=== PATIENT | female | born 1950 | race Caucasian/White ===

== ENCOUNTER 2021-01-18 18:47 | Inpatient (IN) ==
[2021-01-19] MEDS ORDERED: Naloxone 0.4 MG/ML INJ IVP PRN (00:18)
[2021-01-19] MEDS: Azithromycin 500 MG in 0.9 % Sodium Chloride 250 ML IVPB SCH (02:39)
[2021-01-19] MEDS: *HR* OxyCODONE/APAP 10/325 TABLET PO PRN ×2 (02:40→15:42)
[2021-01-19] MEDS ORDERED: Acetaminophen 325 MG TABLET PO PRN (02:52)
[2021-01-19 03:28] LABS: Basophils % 0.2 %; Eosinophils # 0.2 K/mcL (0.0-0.6); Hematocrit 24.8 % (35.3-44.9); Hemoglobin 8.6 g/dL (11.5-15.4); Immature Granulocytes % 1.2 % (0-4); Lymphocytes # 0.5 K/mcL (0.6-4.6); Lymphocytes % 3.1 %; Mean Corpuscular HGB Conc 34.7 g/dL (31.6-35.5); Mean Platelet Volume 8.8 fL (9.4-12.4); Monocytes # 1.2 K/mcL (0.0-1.3); Monocytes % 7.8 %; Neutrophils # 13.6 K/mcL (1.6-8.9); Platelet Count 429 K/mcL (140-400); Red Blood Count 2.61 M/mcL (3.82-4.97); Red Cell Distribution Width 12.3 % (11.5-14.5); Segmented Neutrophils % 86.7 %; White Blood Count 15.7 K/mcL (4.3-11.1)
[2021-01-19 03:38] LABS: INR 1.4; Prothrombin Time 15.4 Seconds (9.4-12.1)
[2021-01-19 03:44] LABS: BUN/Creatinine Ratio 26 (6-26); Blood Urea Nitrogen 11 mg/dL (8-23); Calcium 7.9 mg/dL (8.6-10.3); Carbon Dioxide 30 mEq/L (23-29); Chloride 85 mEq/L (98-107); Glucose 102 mg/dL (70-105); Osmolality,Calculated 252 (280-300); Potassium 3.1 mEq/L (3.5-5.1); Sodium 121 mEq/L (136-145); eGFR For African Americans > 60 (> 60); eGFR For Non-African Americans > 60 (> 60)
[2021-01-19 03:46] LABS: Magnesium 0.9 mg/dL (1.6-2.6)
[2021-01-19 03:59] LABS: Thyroid Stimulating Hormone 4.463 mcIU/mL (0.340-5.600)
[2021-01-19] MEDS ORDERED: Albuterol 2.5 MG/3 ML NEBULIZER IH SCH (04:00)
[2021-01-19] MEDS ORDERED: Lido/Epi/Tetra Gel 2 ML SYRINGE TP ONE (04:59)
[2021-01-19] MEDS ORDERED: 0.9 % Sodium Chloride 1,000 ML IVC SCH (06:45)
[2021-01-19] MEDS: *HR* Enoxaparin 40 MG/0.4 ML SYRINGE SQ SCH (07:55)
[2021-01-19] MEDS: cefTRIAXone 1,000 MG in Water for inj. (sterile) 10 ML IVP SCH (08:14)
[2021-01-19 11:14] LABS: BUN/Creatinine Ratio 21 (6-26); Blood Urea Nitrogen 9 mg/dL (8-23); Calcium 7.8 mg/dL (8.6-10.3); Carbon Dioxide 32 mEq/L (23-29); Chloride 85 mEq/L (98-107); Glucose 98 mg/dL (70-105); Osmolality,Calculated 253 (280-300); Potassium 3.2 mEq/L (3.5-5.1); Sodium 122 mEq/L (136-145); eGFR For African Americans > 60 (> 60); eGFR For Non-African Americans > 60 (> 60)
[2021-01-19] MEDS: Tiotropium 10 INH DOSE IH SCH (11:50)
[2021-01-19 15:19] LABS: BUN/Creatinine Ratio 20 (6-26); Blood Urea Nitrogen 9 mg/dL (8-23); Calcium 7.8 mg/dL (8.6-10.3); Carbon Dioxide 31 mEq/L (23-29); Chloride 86 mEq/L (98-107); Glucose 127 mg/dL (70-105); Osmolality,Calculated 254 (280-300); Potassium 3.3 mEq/L (3.5-5.1); Sodium 122 mEq/L (136-145); eGFR For African Americans > 60 (> 60); eGFR For Non-African Americans > 60 (> 60)
[2021-01-19] MEDS: Gabapentin 400 MG CAPSULE PO SCH ×2 (15:41→21:57)
[2021-01-19] MEDS: Nicotine 21 MG PATCH.TD24 TD SCH (15:42)
[2021-01-19] MEDS: lisinopriL 20 MG TABLET PO SCH (15:42)
[2021-01-19 18:31] LABS: BUN/Creatinine Ratio 21 (6-26); Blood Urea Nitrogen 8 mg/dL (8-23); Calcium 7.9 mg/dL (8.6-10.3); Carbon Dioxide 33 mEq/L (23-29); Chloride 85 mEq/L (98-107); Glucose 96 mg/dL (70-105); Osmolality,Calculated 254 (280-300); Potassium 3.4 mEq/L (3.5-5.1); Sodium 123 mEq/L (136-145); eGFR For African Americans > 60 (> 60); eGFR For Non-African Americans > 60 (> 60)
[2021-01-19] MEDS: traZODone 50 MG TABLET PO SCH (21:58)
[2021-01-19] MEDS: ARIPiprazole 5 MG TABLET PO SCH (21:58)
[2021-01-19] MEDS: Ondansetron 4 MG/2 ML VIAL IVP PRN (22:22)
[2021-01-20 03:36] LABS: Bilirubin,Urine Negative (Negative); Blood,Urine Negative (Negative); Clarity,Urine Clear (Clear); Color,Urine Colorless (Yellow); Glucose,Urine (UA) Normal (Normal); Ketones,Urine Negative (Negative); Leukocyte Esterase,Urine Negative (Negative); Nitrite,Urine Negative (Negative); Protein,Urine Negative (Neg-Trace); Specific Gravity,Urine 1.006 (1.010-1.025); Urobilinogen,Urine Normal (Normal)
[2021-01-20] MEDS: Azithromycin 500 MG in 0.9 % Sodium Chloride 250 ML IVPB SCH (03:54)
[2021-01-20] MEDS: Ondansetron 4 MG/2 ML VIAL IVP PRN (04:46)
[2021-01-20] MEDS: *HR* Enoxaparin 40 MG/0.4 ML SYRINGE SQ SCH (04:53)
[2021-01-20 05:17] LABS: BUN/Creatinine Ratio 16 (6-26); Blood Urea Nitrogen 7 mg/dL (8-23); C-Reactive Protein 236 mg/L (Less than 10); Calcium 7.8 mg/dL (8.6-10.3); Carbon Dioxide 32 mEq/L (23-29); Chloride 87 mEq/L (98-107); Glucose 118 mg/dL (70-105); Lactate Dehydrogenase 100 Units/L (140-271); Magnesium 0.9 mg/dL (1.6-2.6); Osmolality,Calculated 259 (280-300); Potassium 3.8 mEq/L (3.5-5.1); Sodium 125 mEq/L (136-145); eGFR For African Americans > 60 (> 60); eGFR For Non-African Americans > 60 (> 60)
[2021-01-20 05:35] LABS: Ferritin 327 ng/mL (10-120)
[2021-01-20] MEDS: Tiotropium 10 INH DOSE IH SCH (07:37)
[2021-01-20] MEDS: Nicotine 21 MG PATCH.TD24 TD SCH ×2 (08:07→11:47)
[2021-01-20] MEDS: cefTRIAXone 1,000 MG in Water for inj. (sterile) 10 ML IVP SCH (08:08)
[2021-01-20] MEDS: lisinopriL 20 MG TABLET PO SCH (08:09)
[2021-01-20] MEDS: Gabapentin 400 MG CAPSULE PO SCH ×3 (08:10→21:11)
[2021-01-20] MEDS: *HR* OxyCODONE/APAP 10/325 TABLET PO PRN ×2 (11:48→17:49)
[2021-01-20] MEDS: Budesonide/Formoterol 160/4.5 1 PUFF INH IH SCH ×2 (11:57→20:41)
[2021-01-20] MEDS: Cholecalciferol (D-3) 1,000 UNIT (25MCG) TABLET PO SCH (13:00)
[2021-01-20] MEDS: BuPROPion SR (12 HR) 150 MG TABLET PO SCH ×2 (13:00→21:12)
[2021-01-20] MEDS: traZODone 50 MG TABLET PO SCH (21:10)
[2021-01-20] MEDS: modafiniL 100 MG TABLET PO SCH (21:11)
[2021-01-20] MEDS: ARIPiprazole 5 MG TABLET PO SCH (21:12)
[2021-01-21] MEDS: Azithromycin 500 MG in 0.9 % Sodium Chloride 250 ML IVPB SCH (03:04)
[2021-01-21 04:37] LABS: BUN/Creatinine Ratio 26 (6-26); Blood Urea Nitrogen 14 mg/dL (8-23); C-Reactive Protein 124 mg/L (Less than 10); Calcium 7.8 mg/dL (8.6-10.3); Carbon Dioxide 33 mEq/L (23-29); Chloride 89 mEq/L (98-107); Glucose 90 mg/dL (70-105); Lactate Dehydrogenase 77 Units/L (140-271); Osmolality,Calculated 260 (280-300); Potassium 3.9 mEq/L (3.5-5.1); Sodium 125 mEq/L (136-145); eGFR For African Americans > 60 (> 60); eGFR For Non-African Americans > 60 (> 60)
[2021-01-21 04:51] LABS: Ferritin 283 ng/mL (10-120)
[2021-01-21] MEDS: *HR* Enoxaparin 40 MG/0.4 ML SYRINGE SQ SCH (05:15)
[2021-01-21] MEDS: Budesonide/Formoterol 160/4.5 1 PUFF INH IH SCH ×2 (07:32→20:33)
[2021-01-21] MEDS: Tiotropium 10 INH DOSE IH SCH (07:33)
[2021-01-21] MEDS: cefTRIAXone 1,000 MG in Water for inj. (sterile) 10 ML IVP SCH (07:41)
[2021-01-21] MEDS: modafiniL 100 MG TABLET PO SCH ×2 (07:42→22:01)
[2021-01-21] MEDS: Gabapentin 400 MG CAPSULE PO SCH ×3 (07:42→22:00)
[2021-01-21] MEDS: Cholecalciferol (D-3) 1,000 UNIT (25MCG) TABLET PO SCH (07:42)
[2021-01-21] MEDS: BuPROPion SR (12 HR) 150 MG TABLET PO SCH ×2 (07:42→22:00)
[2021-01-21] MEDS: lisinopriL 20 MG TABLET PO SCH (07:42)
[2021-01-21] MEDS: Nicotine 21 MG PATCH.TD24 TD SCH (13:30)
[2021-01-21] MEDS: traZODone 50 MG TABLET PO SCH (22:03)
[2021-01-21] MEDS: ARIPiprazole 5 MG TABLET PO SCH (22:05)
[2021-01-22] MEDS: Azithromycin 500 MG in 0.9 % Sodium Chloride 250 ML IVPB SCH (00:58)
[2021-01-22] MEDS: *HR* Enoxaparin 30 MG/0.3 ML SYRINGE SQ SCH (05:11)
[2021-01-22 06:23] LABS: BUN/Creatinine Ratio 27 (6-26); Blood Urea Nitrogen 13 mg/dL (8-23); Calcium 7.9 mg/dL (8.6-10.3); Carbon Dioxide 34 mEq/L (23-29); Chloride 90 mEq/L (98-107); Glucose 79 mg/dL (70-105); Lactate Dehydrogenase 92 Units/L (140-271); Osmolality,Calculated 265 (280-300); Potassium 3.8 mEq/L (3.5-5.1); Sodium 128 mEq/L (136-145); eGFR For African Americans > 60 (> 60); eGFR For Non-African Americans > 60 (> 60)
[2021-01-22 06:38] LABS: Ferritin 301 ng/mL (10-120)
[2021-01-22] MEDS: Tiotropium 10 INH DOSE IH SCH (07:47)
[2021-01-22] MEDS: Budesonide/Formoterol 160/4.5 1 PUFF INH IH SCH ×2 (07:47→19:38)
[2021-01-22] MEDS: Cholecalciferol (D-3) 1,000 UNIT (25MCG) TABLET PO SCH (07:59)
[2021-01-22] MEDS: lisinopriL 20 MG TABLET PO SCH (07:59)
[2021-01-22] MEDS: cefTRIAXone 1,000 MG in Water for inj. (sterile) 10 ML IVP SCH (08:00)
[2021-01-22] MEDS: Gabapentin 400 MG CAPSULE PO SCH ×3 (08:00→22:09)
[2021-01-22] MEDS: BuPROPion SR (12 HR) 150 MG TABLET PO SCH ×2 (08:00→22:09)
[2021-01-22] MEDS: modafiniL 100 MG TABLET PO SCH ×2 (08:00→22:09)
[2021-01-22 08:49] LABS: C-Reactive Protein 75 mg/L (Less than 10)
[2021-01-22] MEDS: Nicotine 21 MG PATCH.TD24 TD SCH (10:16)
[2021-01-22] MEDS: *HR* OxyCODONE/APAP 10/325 TABLET PO PRN ×2 (10:23→20:37)
[2021-01-22] MEDS ORDERED: Dental Box - Benzocaine 20% SWAB DT ONE (21:20)
[2021-01-22] MEDS ORDERED: Benzocaine 20% 12 APPL GEL..GRAM. TP PRN (21:31)
[2021-01-22] MEDS: traZODone 50 MG TABLET PO SCH (22:08)
[2021-01-22] MEDS: ARIPiprazole 5 MG TABLET PO SCH (22:08)
[2021-01-23] MEDS: *HR* Enoxaparin 30 MG/0.3 ML SYRINGE SQ SCH (04:53)
[2021-01-23] MEDS: *HR* OxyCODONE/APAP 10/325 TABLET PO PRN (04:58)
[2021-01-23 05:02] LABS: Basophils % 0.2 %; Eosinophils # 0.1 K/mcL (0.0-0.6); Eosinophils % 1.1 %; Hematocrit 22.1 % (35.3-44.9); Hemoglobin 7.2 g/dL (11.5-15.4); Immature Granulocytes % 1.4 % (0-4); Lymphocytes # 0.6 K/mcL (0.6-4.6); Mean Corpuscular HGB Conc 32.6 g/dL (31.6-35.5); Mean Corpuscular Volume 98.2 fL (83.0-100.0); Mean Platelet Volume 8.5 fL (9.4-12.4); Monocytes # 0.8 K/mcL (0.0-1.3); Monocytes % 8.6 %; Neutrophils # 7.8 K/mcL (1.6-8.9); Platelet Count 408 K/mcL (140-400); Red Blood Count 2.25 M/mcL (3.82-4.97); Segmented Neutrophils % 82.7 %; White Blood Count 9.5 K/mcL (4.3-11.1)
[2021-01-23 05:39] LABS: BUN/Creatinine Ratio 25 (6-26); Blood Urea Nitrogen 13 mg/dL (8-23); C-Reactive Protein 69 mg/L (Less than 10); Calcium 7.9 mg/dL (8.6-10.3); Carbon Dioxide 33 mEq/L (23-29); Chloride 91 mEq/L (98-107); Glucose 87 mg/dL (70-105); Lactate Dehydrogenase 89 Units/L (140-271); Osmolality,Calculated 265 (280-300); Sodium 128 mEq/L (136-145); eGFR For African Americans > 60 (> 60); eGFR For Non-African Americans > 60 (> 60)
[2021-01-23 05:42] LABS: Ferritin 373 ng/mL (10-120)
[2021-01-23] MEDS: Tiotropium 10 INH DOSE IH SCH (07:31)
[2021-01-23] MEDS: Budesonide/Formoterol 160/4.5 1 PUFF INH IH SCH ×2 (07:31→20:40)
[2021-01-23] MEDS: Cholecalciferol (D-3) 1,000 UNIT (25MCG) TABLET PO SCH (10:24)
[2021-01-23] MEDS: Gabapentin 400 MG CAPSULE PO SCH ×2 (10:24→15:41)
[2021-01-23] MEDS: BuPROPion SR (12 HR) 150 MG TABLET PO SCH (10:24)
[2021-01-23] MEDS: lisinopriL 20 MG TABLET PO SCH (10:25)
[2021-01-23] MEDS: Azithromycin 250 MG TABLET PO SCH (10:25)
[2021-01-23] MEDS: modafiniL 100 MG TABLET PO SCH (10:25)
[2021-01-23] MEDS: cefTRIAXone 1,000 MG in Water for inj. (sterile) 10 ML IVP SCH (10:25)
[2021-01-23] MEDS: Nicotine 21 MG PATCH.TD24 TD SCH (10:30)
[2021-01-24] MEDS: Gabapentin 400 MG CAPSULE PO SCH ×4 (00:56→22:21)
[2021-01-24] MEDS: ARIPiprazole 5 MG TABLET PO SCH ×2 (00:56→22:21)
[2021-01-24] MEDS: traZODone 50 MG TABLET PO SCH ×2 (00:57→22:20)
[2021-01-24] MEDS: BuPROPion SR (12 HR) 150 MG TABLET PO SCH ×3 (00:57→22:21)
[2021-01-24] MEDS: modafiniL 100 MG TABLET PO SCH ×3 (00:57→22:20)
[2021-01-24] MEDS: *HR* Enoxaparin 30 MG/0.3 ML SYRINGE SQ SCH (00:58)
[2021-01-24 03:02] LABS: Hematocrit 23.5 % (35.3-44.9); Mean Corpuscular Hemoglobin 32.9 pg (28.0-33.3); Mean Corpuscular Volume 96.7 fL (83.0-100.0); Mean Platelet Volume 8.7 fL (9.4-12.4); Platelet Count 436 K/mcL (140-400); Red Blood Count 2.43 M/mcL (3.82-4.97); White Blood Count 11.8 K/mcL (4.3-11.1)
[2021-01-24 03:09] LABS: INR 1.7; Prothrombin Time 19.4 Seconds (9.4-12.1)
[2021-01-24 03:19] LABS: BUN/Creatinine Ratio 21 (6-26); Blood Urea Nitrogen 9 mg/dL (8-23); Calcium 8.3 mg/dL (8.6-10.3); Carbon Dioxide 33 mEq/L (23-29); Chloride 89 mEq/L (98-107); Glucose 74 mg/dL (70-105); Magnesium 1.2 mg/dL (1.6-2.6); Osmolality,Calculated 259 (280-300); Potassium 3.5 mEq/L (3.5-5.1); Sodium 126 mEq/L (136-145); eGFR For African Americans > 60 (> 60); eGFR For Non-African Americans > 60 (> 60)
[2021-01-24] MEDS: Tiotropium 10 INH DOSE IH SCH (08:32)
[2021-01-24] MEDS: Budesonide/Formoterol 160/4.5 1 PUFF INH IH SCH ×2 (08:32→19:38)
[2021-01-24] MEDS ORDERED: *HR* Succinylcholine 200 MG/10 ML VIAL IVP ONE (09:37)
[2021-01-24] MEDS ORDERED: Lidocaine -MPF 2% 5 ML VIAL ONE (09:37)
[2021-01-24] MEDS ORDERED: *HR* Propofol 200 MG/20 ML VIAL IVP ONE (10:25)
[2021-01-24] MEDS: lisinopriL 20 MG TABLET PO SCH (11:00)
[2021-01-24] MEDS: Cholecalciferol (D-3) 1,000 UNIT (25MCG) TABLET PO SCH (11:00)
[2021-01-24] MEDS: cefTRIAXone 1,000 MG in Water for inj. (sterile) 10 ML IVP SCH (11:30)
[2021-01-24] MEDS: Azithromycin 250 MG TABLET PO SCH (11:35)
[2021-01-24] MEDS: *HR* OxyCODONE/APAP 10/325 TABLET PO PRN ×2 (13:20→22:21)
[2021-01-24] MEDS: Nicotine 21 MG PATCH.TD24 TD SCH (15:08)
[2021-01-25] MEDS: *HR* OxyCODONE/APAP 10/325 TABLET PO PRN ×2 (04:26→16:23)
[2021-01-25] MEDS: *HR* Enoxaparin 30 MG/0.3 ML SYRINGE SQ SCH (04:27)
[2021-01-25 05:04] LABS: Hematocrit 23.4 % (35.3-44.9); Hemoglobin 7.7 g/dL (11.5-15.4); Mean Corpuscular HGB Conc 32.9 g/dL (31.6-35.5); Mean Corpuscular Hemoglobin 32.1 pg (28.0-33.3); Mean Corpuscular Volume 97.5 fL (83.0-100.0); Mean Platelet Volume 8.7 fL (9.4-12.4); Platelet Count 415 K/mcL (140-400); Red Cell Distribution Width 12.9 % (11.5-14.5); White Blood Count 10.8 K/mcL (4.3-11.1)
[2021-01-25 05:17] LABS: BUN/Creatinine Ratio 17 (6-26); Blood Urea Nitrogen 9 mg/dL (8-23); Calcium 8.4 mg/dL (8.6-10.3); Carbon Dioxide 32 mEq/L (23-29); Chloride 89 mEq/L (98-107); Glucose 83 mg/dL (70-105); Magnesium 1.2 mg/dL (1.6-2.6); Osmolality,Calculated 262 (280-300); Potassium 3.4 mEq/L (3.5-5.1); Sodium 127 mEq/L (136-145); eGFR For African Americans > 60 (> 60); eGFR For Non-African Americans > 60 (> 60)
[2021-01-25] MEDS: Azithromycin 250 MG TABLET PO SCH (07:41)
[2021-01-25] MEDS: BuPROPion SR (12 HR) 150 MG TABLET PO SCH (07:42)
[2021-01-25] MEDS: lisinopriL 20 MG TABLET PO SCH (07:42)
[2021-01-25] MEDS: Cholecalciferol (D-3) 1,000 UNIT (25MCG) TABLET PO SCH (07:42)
[2021-01-25] MEDS: Gabapentin 400 MG CAPSULE PO SCH ×2 (07:42→16:20)
[2021-01-25] MEDS: modafiniL 100 MG TABLET PO SCH (07:42)
[2021-01-25] MEDS: cefTRIAXone 1,000 MG in Water for inj. (sterile) 10 ML IVP SCH (07:43)
[2021-01-25] MEDS: Tiotropium 10 INH DOSE IH SCH (07:57)
[2021-01-25] MEDS: Budesonide/Formoterol 160/4.5 1 PUFF INH IH SCH (07:57)
[2021-01-25] MEDS ORDERED: dexAMETHasone 4 MG TABLET PO SCH (09:00)
[2021-01-25 11:05] VITALS: BP 124/61; PULSE 78; TEMP 98.2
[2021-01-25] MEDS: Nicotine 21 MG PATCH.TD24 TD SCH (12:22)
[2021-01-25 16:34] VITALS: O2SAT 96
== END 2021-01-25 17:20 | DRG 987 ==
LOC: 3NENU → SUATTDRO 01-19 02:52
PROVIDERS: ADMIT Family Medicine; ATTEND Internal Medicine

== ENCOUNTER 2021-02-23 21:42 | Inpatient (IN) ==
[2021-02-24] MEDS ORDERED: Acetaminophen 325 MG TABLET PO PRN (00:03)
[2021-02-24] MEDS ORDERED: Naloxone 0.4 MG/ML INJ IVP PRN (00:03)
[2021-02-24 00:49] LABS: BUN/Creatinine Ratio 17 (6-26); Blood Urea Nitrogen 10 mg/dL (8-23); Calcium 8.8 mg/dL (8.6-10.3); Carbon Dioxide 26 mEq/L (23-29); Chloride 94 mEq/L (98-107); Cholesterol 131 mg/dL (< 200); Glucose 104 mg/dL (70-105); HDL Cholesterol 67 mg/dL (40-59); LDL Cholesterol,Calculated 53 mg/dL (< 100); Magnesium 1.4 mg/dL (1.6-2.6); Osmolality,Calculated 269 (280-300); Phosphorous 2.1 mg/dL (2.7-4.5); Potassium 3.7 mEq/L (3.5-5.1); Sodium 130 mEq/L (136-145); Triglycerides 57 mg/dL (< 150); eGFR For African Americans > 60 (> 60); eGFR For Non-African Americans > 60 (> 60)
[2021-02-24] MEDS ORDERED: *HR* Heparin 5,000 UNIT/ML VIAL IVP PRN (01:12)
[2021-02-24] MEDS ORDERED: *HR* Heparin 5,000 UNIT/ML VIAL IVP ONE (01:12)
[2021-02-24] MEDS ORDERED: Perflutren Lipid Microsphere 1.3 ML in 0.9 % Sodium Chloride 8.7 ML IVP PRN (01:36)
[2021-02-24] MEDS ORDERED: Isovue-370 500 ML BOTTLE IVP ONE (01:43)
[2021-02-24] MEDS ORDERED: Dextrose Gel 15 GM/37.5 ML TUBE PO PRN ×2 (01:44)
[2021-02-24] MEDS ORDERED: D5% in Water 1,000 ML IVC PRN (01:44)
[2021-02-24] MEDS ORDERED: *HR* Dextrose 50 % in Water (Syg) 50 ML SYRINGE IVP PRN (01:44)
[2021-02-24] MEDS ORDERED: Saliva Stimulant 44.3ml BOTTLE PO PRN (01:46)
[2021-02-24 01:55] LABS: Heparin anti-factor XA UFH < 0.04 IU/mL (0.30-0.70)
[2021-02-24 01:56] LABS: INR 1.3; Prothrombin Time 14.3 Seconds (9.4-12.1)
[2021-02-24] MEDS: Heparin 25,000UNIT/250ML 1/2NS 25,000 UNIT/250 ML IV.SOLN IVC SCH (03:09)
[2021-02-24 03:40] LABS: Estimated Average Glucose 88 mg/dl; Hemoglobin A1C 4.7 %
[2021-02-24 03:49] LABS: Basophils % 0.2 %; Eosinophils % 0.3 %; Hematocrit 27.8 % (35.3-44.9); Immature Granulocytes % 0.5 % (0-4); Lymphocytes # 1.1 K/mcL (0.6-4.6); Lymphocytes % 9.3 %; Mean Corpuscular HGB Conc 32.4 g/dL (31.6-35.5); Mean Corpuscular Hemoglobin 32.8 pg (28.0-33.3); Mean Corpuscular Volume 101.5 fL (83.0-100.0); Mean Platelet Volume 9.6 fL (9.4-12.4); Monocytes # 1.1 K/mcL (0.0-1.3); Monocytes % 9.3 %; Neutrophils # 9.6 K/mcL (1.6-8.9); Platelet Count 245 K/mcL (140-400); Red Blood Count 2.74 M/mcL (3.82-4.97); Segmented Neutrophils % 80.4 %; White Blood Count 11.9 K/mcL (4.3-11.1)
[2021-02-24 03:57] LABS: C-Reactive Protein 135 mg/L (Less than 10)
[2021-02-24] MEDS ORDERED: Cefepime HCl 2,000 MG in 0.9 % Sodium Chloride Mini Bag 100 ML IVPB SCH (04:00)
[2021-02-24 04:23] LABS: Acetaminophen < 10 mcg/mL (10-20); Salicylate < 2.5 mg/dL (15.0-30.0)
[2021-02-24 04:27] LABS: Troponin I 0.54 ng/mL (< 0.04)
[2021-02-24] MEDS ORDERED: Saline Nasal Spray 44 ML BOTTLE NS PRN (04:57)
[2021-02-24 06:18] LABS: % Iron Saturation 9 % (15-50); Ferritin 734 ng/mL (10-120); Iron 18 mcg/dL (50-170); Transferrin 141 mg/dL (203-362)
[2021-02-24] MEDS: Cefepime HCl 2,000 MG in Water for inj. (sterile) 20 ML IVP SCH ×2 (06:59→18:57)
[2021-02-24] MEDS: carvediloL 6.25 MG TABLET PO SCH ×2 (08:34→18:56)
[2021-02-24] MEDS: lisinopriL 20 MG TABLET PO SCH (12:30)
[2021-02-24] MEDS: ARIPiprazole 5 MG TABLET PO SCH (12:30)
[2021-02-24] MEDS: Nicotine 21 MG PATCH.TD24 TD SCH (12:33)
[2021-02-24] MEDS: Gabapentin 400 MG CAPSULE PO SCH ×2 (13:46→21:19)
[2021-02-24] MEDS: Budesonide/Formoterol 160/4.5 1 PUFF INH IH SCH (20:08)
[2021-02-24] MEDS: *HR* Heparin 5,000 UNIT/ML VIAL IVP PRN (20:49)
[2021-02-24] MEDS: BuPROPion SR (12 HR) 150 MG TABLET PO SCH (21:20)
[2021-02-24] MEDS: traZODone 50 MG TABLET PO SCH (21:21)
[2021-02-25] MEDS: Cefepime HCl 2,000 MG in Water for inj. (sterile) 20 ML IVP SCH ×2 (05:27→17:11)
[2021-02-25 06:27] LABS: Basophils # 0.1 K/mcL (0.0-0.2); Basophils % 0.7 %; Eosinophils # 0.1 K/mcL (0.0-0.6); Eosinophils % 1.6 %; Hematocrit 29.3 % (35.3-44.9); Hemoglobin 9.7 g/dL (11.5-15.4); Immature Granulocytes % 0.6 % (0-4); Mean Corpuscular HGB Conc 33.1 g/dL (31.6-35.5); Mean Corpuscular Hemoglobin 33.8 pg (28.0-33.3); Mean Corpuscular Volume 102.1 fL (83.0-100.0); Mean Platelet Volume 9.7 fL (9.4-12.4); Monocytes # 0.8 K/mcL (0.0-1.3); Monocytes % 12.1 %; Neutrophils # 4.9 K/mcL (1.6-8.9); Platelet Count 265 K/mcL (140-400); Red Blood Count 2.87 M/mcL (3.82-4.97); Red Cell Distribution Width 13.8 % (11.5-14.5); White Blood Count 6.9 K/mcL (4.3-11.1)
[2021-02-25 06:40] LABS: BUN/Creatinine Ratio 21 (6-26); Blood Urea Nitrogen 12 mg/dL (8-23); Carbon Dioxide 29 mEq/L (23-29); Chloride 97 mEq/L (98-107); Glucose 106 mg/dL (70-105); Magnesium 1.5 mg/dL (1.6-2.6); Osmolality,Calculated 274 (280-300); Potassium 3.4 mEq/L (3.5-5.1); Sodium 132 mEq/L (136-145); eGFR For African Americans > 60 (> 60); eGFR For Non-African Americans > 60 (> 60)
[2021-02-25] MEDS: Budesonide/Formoterol 160/4.5 1 PUFF INH IH SCH ×2 (07:15→20:50)
[2021-02-25] MEDS ORDERED: Tiotropium 10 INH DOSE IH ONE (07:17)
[2021-02-25] MEDS: Tiotropium 10 INH DOSE IH SCH (07:19)
[2021-02-25] MEDS: BuPROPion SR (12 HR) 150 MG TABLET PO SCH ×2 (08:40→21:21)
[2021-02-25] MEDS: Gabapentin 400 MG CAPSULE PO SCH ×3 (08:40→21:20)
[2021-02-25] MEDS: Cholecalciferol (D-3) 1,000 UNIT (25MCG) TABLET PO SCH (08:40)
[2021-02-25] MEDS: ARIPiprazole 5 MG TABLET PO SCH (08:40)
[2021-02-25] MEDS: carvediloL 6.25 MG TABLET PO SCH ×2 (08:41→16:14)
[2021-02-25] MEDS: Multivit/Ca/Min/Fe/FA 1 TAB TABLET PO SCH (08:41)
[2021-02-25] MEDS: lisinopriL 20 MG TABLET PO SCH (08:41)
[2021-02-25] MEDS: Nicotine 21 MG PATCH.TD24 TD SCH (10:23)
[2021-02-25] MEDS: *HR* Heparin 5,000 UNIT/ML VIAL IVP PRN ×2 (10:23→17:11)
[2021-02-25] MEDS: Heparin 25,000UNIT/250ML 1/2NS 25,000 UNIT/250 ML IV.SOLN IVC SCH (13:51)
[2021-02-25] MEDS: traZODone 50 MG TABLET PO SCH (21:20)
[2021-02-25] MEDS: *HR* OxyCODONE/APAP 10/325 TABLET PO PRN (21:27)
[2021-02-26 04:51] LABS: Bilirubin,Urine Negative (Negative); Blood,Urine Negative (Negative); Clarity,Urine Clear (Clear); Color,Urine Colorless (Yellow); Glucose,Urine (UA) Normal (Normal); Ketones,Urine Negative (Negative); Leukocyte Esterase,Urine Negative (Negative); Nitrite,Urine Negative (Negative); Protein,Urine Negative (Neg-Trace); Specific Gravity,Urine 1.008 (1.010-1.025); Urobilinogen,Urine Normal (Normal)
[2021-02-26 04:55] LABS: Basophils % 0.6 %; Eosinophils # 0.1 K/mcL (0.0-0.6); Hematocrit 26.3 % (35.3-44.9); Hemoglobin 8.7 g/dL (11.5-15.4); Immature Granulocytes % 0.7 % (0-4); Lymphocytes # 1.4 K/mcL (0.6-4.6); Lymphocytes % 18.9 %; Mean Corpuscular HGB Conc 33.1 g/dL (31.6-35.5); Mean Corpuscular Hemoglobin 33.7 pg (28.0-33.3); Mean Corpuscular Volume 101.9 fL (83.0-100.0); Mean Platelet Volume 9.7 fL (9.4-12.4); Monocytes # 0.9 K/mcL (0.0-1.3); Monocytes % 12.8 %; Neutrophils # 4.7 K/mcL (1.6-8.9); Platelet Count 265 K/mcL (140-400); Red Blood Count 2.58 M/mcL (3.82-4.97); Red Cell Distribution Width 13.8 % (11.5-14.5); White Blood Count 7.2 K/mcL (4.3-11.1)
[2021-02-26 05:14] LABS: BUN/Creatinine Ratio 31 (6-26); Blood Urea Nitrogen 17 mg/dL (8-23); Calcium 8.4 mg/dL (8.6-10.3); Carbon Dioxide 28 mEq/L (23-29); Chloride 97 mEq/L (98-107); Glucose 89 mg/dL (70-105); Magnesium 1.3 mg/dL (1.6-2.6); Osmolality,Calculated 271 (280-300); Potassium 3.5 mEq/L (3.5-5.1); Sodium 130 mEq/L (136-145); eGFR For African Americans > 60 (> 60); eGFR For Non-African Americans > 60 (> 60)
[2021-02-26] MEDS: Cefepime HCl 2,000 MG in Water for inj. (sterile) 20 ML IVP SCH (06:15)
[2021-02-26] MEDS: *HR* Enoxaparin 40 MG/0.4 ML SYRINGE SQ SCH (06:16)
[2021-02-26] MEDS: Tiotropium 10 INH DOSE IH SCH (07:35)
[2021-02-26] MEDS: Budesonide/Formoterol 160/4.5 1 PUFF INH IH SCH ×2 (07:35→20:39)
[2021-02-26] MEDS: Gabapentin 400 MG CAPSULE PO SCH ×3 (09:04→21:47)
[2021-02-26] MEDS: BuPROPion SR (12 HR) 150 MG TABLET PO SCH ×2 (09:04→21:49)
[2021-02-26] MEDS: lisinopriL 20 MG TABLET PO SCH (09:04)
[2021-02-26] MEDS: Multivit/Ca/Min/Fe/FA 1 TAB TABLET PO SCH (09:04)
[2021-02-26] MEDS: ARIPiprazole 5 MG TABLET PO SCH (09:04)
[2021-02-26] MEDS: carvediloL 6.25 MG TABLET PO SCH ×2 (09:04→16:25)
[2021-02-26] MEDS: Cholecalciferol (D-3) 1,000 UNIT (25MCG) TABLET PO SCH (09:04)
[2021-02-26] MEDS: Nicotine 21 MG PATCH.TD24 TD SCH (11:08)
[2021-02-26] MEDS ORDERED: Cyanocobalamin (B-12) 1,000 MCG/ML VIAL SQ ONE (13:31)
[2021-02-26] MEDS ORDERED: Ipratropium/Albuterol Neb 3 ML IH PRN (13:33)
[2021-02-26] MEDS: *HR* OxyCODONE/APAP 10/325 TABLET PO PRN ×2 (16:25→21:48)
[2021-02-26] MEDS ORDERED: Albuterol 2.5 MG/3 ML NEBULIZER ONE (16:41)
[2021-02-26] MEDS: Albuterol 2.5 MG/3 ML NEBULIZER IH PRN ×2 (16:44→20:39)
[2021-02-26] MEDS ORDERED: levoFLOXacin 750 MG TABLET PO SCH (18:00)
[2021-02-26] MEDS: traZODone 50 MG TABLET PO SCH (21:48)
[2021-02-27] MEDS: *HR* Enoxaparin 40 MG/0.4 ML SYRINGE SQ SCH (05:16)
[2021-02-27] MEDS: *HR* OxyCODONE/APAP 10/325 TABLET PO PRN ×2 (05:53→10:32)
[2021-02-27 07:14] VITALS: BP 105/53; PULSE 72; TEMP 97.9
[2021-02-27 07:21] LABS: Basophils % 0.5 %; Eosinophils # 0.1 K/mcL (0.0-0.6); Eosinophils % 1.1 %; Hematocrit 28.9 % (35.3-44.9); Hemoglobin 9.4 g/dL (11.5-15.4); Immature Granulocytes % 0.9 % (0-4); Lymphocytes % 13.7 %; Mean Corpuscular HGB Conc 32.5 g/dL (31.6-35.5); Mean Corpuscular Hemoglobin 33.3 pg (28.0-33.3); Mean Corpuscular Volume 102.5 fL (83.0-100.0); Mean Platelet Volume 9.8 fL (9.4-12.4); Monocytes # 1.1 K/mcL (0.0-1.3); Monocytes % 14.3 %; Neutrophils # 5.2 K/mcL (1.6-8.9); Platelet Count 273 K/mcL (140-400); Red Blood Count 2.82 M/mcL (3.82-4.97); Red Cell Distribution Width 13.8 % (11.5-14.5); Segmented Neutrophils % 69.5 %; White Blood Count 7.5 K/mcL (4.3-11.1)
[2021-02-27 08:04] LABS: BUN/Creatinine Ratio 28 (6-26); Blood Urea Nitrogen 18 mg/dL (8-23); Calcium 8.6 mg/dL (8.6-10.3); Carbon Dioxide 27 mEq/L (23-29); Chloride 98 mEq/L (98-107); Glucose 90 mg/dL (70-105); Osmolality,Calculated 279 (280-300); Potassium 3.7 mEq/L (3.5-5.1); Sodium 134 mEq/L (136-145); eGFR For African Americans > 60 (> 60); eGFR For Non-African Americans > 60 (> 60)
[2021-02-27] MEDS: Albuterol 2.5 MG/3 ML NEBULIZER IH PRN (08:17)
[2021-02-27] MEDS: Budesonide/Formoterol 160/4.5 1 PUFF INH IH SCH (08:17)
[2021-02-27] MEDS: Tiotropium 10 INH DOSE IH SCH (08:20)
[2021-02-27 08:37] VITALS: O2SAT 99
[2021-02-27] MEDS: BuPROPion SR (12 HR) 150 MG TABLET PO SCH (09:10)
[2021-02-27] MEDS: Multivit/Ca/Min/Fe/FA 1 TAB TABLET PO SCH (09:10)
[2021-02-27] MEDS: carvediloL 6.25 MG TABLET PO SCH (09:10)
[2021-02-27] MEDS: Gabapentin 400 MG CAPSULE PO SCH (09:10)
[2021-02-27] MEDS: lisinopriL 20 MG TABLET PO SCH (09:10)
[2021-02-27] MEDS: ARIPiprazole 5 MG TABLET PO SCH (09:10)
[2021-02-27] MEDS: Cholecalciferol (D-3) 1,000 UNIT (25MCG) TABLET PO SCH (09:11)
[2021-02-27] MEDS: Nicotine 21 MG PATCH.TD24 TD SCH (11:53)
== END 2021-02-27 13:01 | DRG 871 ==
LOC: 3ANU → SUATTDRO 23:02 → 3ANU 02-25 18:43
PROVIDERS: ADMIT Internal Medicine; ATTEND Pharmacist

== ENCOUNTER 2021-03-13 15:00 | Inpatient (IN) ==
[2021-03-13] MEDS ORDERED: Ondansetron 4 MG/2 ML VIAL IVP PRN (17:29)
[2021-03-13] MEDS ORDERED: Acetaminophen 325 MG TABLET PO PRN (17:29)
[2021-03-13] MEDS ORDERED: Ipratropium/Albuterol Neb 3 ML IH PRN (18:13)
[2021-03-13] MEDS: Budesonide/Formoterol 160/4.5 1 PUFF INH IH SCH (20:15)
[2021-03-13] MEDS: *HR* HYDROcodone/Acet 10/325 mg TABLET PO PRN (23:01)
[2021-03-14 02:00] LABS: Hematocrit 32.7 % (35.3-44.9); Hemoglobin 10.8 g/dL (11.5-15.4); Mean Corpuscular Hemoglobin 32.8 pg (28.0-33.3); Mean Corpuscular Volume 99.4 fL (83.0-100.0); Mean Platelet Volume 9.5 fL (9.4-12.4); Platelet Count 296 K/mcL (140-400); Red Blood Count 3.29 M/mcL (3.82-4.97); Red Cell Distribution Width 13.3 % (11.5-14.5); White Blood Count 6.9 K/mcL (4.3-11.1)
[2021-03-14 02:21] LABS: BUN/Creatinine Ratio 19 (6-26); Blood Urea Nitrogen 12 mg/dL (8-23); Calcium 9.5 mg/dL (8.6-10.3); Carbon Dioxide 29 mEq/L (23-29); Chloride 97 mEq/L (98-107); Glucose 92 mg/dL (70-105); Osmolality,Calculated 277 (280-300); Potassium 3.6 mEq/L (3.5-5.1); Sodium 134 mEq/L (136-145); eGFR For African Americans > 60 (> 60); eGFR For Non-African Americans > 60 (> 60)
[2021-03-14] MEDS: *HR* HYDROcodone/Acet 10/325 mg TABLET PO PRN ×3 (05:51→21:21)
[2021-03-14] MEDS: Budesonide/Formoterol 160/4.5 1 PUFF INH IH SCH ×2 (08:14→20:41)
[2021-03-14] MEDS ORDERED: Lidocaine -MPF 2% 5 ML VIAL ONE (08:31)
[2021-03-14] MEDS ORDERED: *HR* Succinylcholine 200 MG/10 ML VIAL IVP ONE ×2 (08:32→09:37)
[2021-03-14] MEDS ORDERED: Lidocaine -MPF 4% 5 ML AMPUL ONE (08:32)
[2021-03-14] MEDS ORDERED: *HR* Midazolam HCl 2 MG/2 ML VIAL ONE (08:59)
[2021-03-14] MEDS ORDERED: Ondansetron 4 MG/2 ML VIAL ONE (09:04)
[2021-03-14] MEDS ORDERED: *HR* Labetalol 20 MG/4 ML SYRINGE IVP ONE (09:43)
[2021-03-14] MEDS: Tiotropium 10 INH DOSE IH SCH (10:55)
[2021-03-14] MEDS: BuPROPion SR (12 HR) 150 MG TABLET PO SCH ×2 (11:09→20:51)
[2021-03-14] MEDS: ARIPiprazole 5 MG TABLET PO SCH (11:09)
[2021-03-14] MEDS: Nicotine 21 MG PATCH.TD24 TD SCH (11:10)
[2021-03-14] MEDS: carvediloL 6.25 MG TABLET PO SCH ×2 (11:10→16:31)
[2021-03-14] MEDS: Gabapentin 400 MG CAPSULE PO SCH ×3 (11:11→20:50)
[2021-03-14] MEDS: lisinopriL 20 MG TABLET PO SCH (11:11)
[2021-03-14] MEDS ORDERED: MetroNIDAZOLE 500 MG/100 ML 500 MG/100 ML BAG IVPB SCH (16:00)
[2021-03-14] MEDS: metroNIDAZOLE 500 MG TABLET PO SCH (16:31)
[2021-03-14] MEDS: levoFLOXacin 750 MG/150 ML 750 MG/150 ML BAG IVPB SCH (16:32)
[2021-03-14] MEDS: traZODone 50 MG TABLET PO SCH (20:51)
[2021-03-15] MEDS: metroNIDAZOLE 500 MG TABLET PO SCH ×4 (00:09→23:35)
[2021-03-15] MEDS: carvediloL 6.25 MG TABLET PO SCH ×2 (09:34→17:20)
[2021-03-15] MEDS: BuPROPion SR (12 HR) 150 MG TABLET PO SCH ×2 (09:35→20:10)
[2021-03-15] MEDS: lisinopriL 20 MG TABLET PO SCH (09:35)
[2021-03-15] MEDS: Gabapentin 400 MG CAPSULE PO SCH ×3 (09:36→20:09)
[2021-03-15] MEDS: Tiotropium 10 INH DOSE IH SCH (09:37)
[2021-03-15] MEDS: Budesonide/Formoterol 160/4.5 1 PUFF INH IH SCH ×2 (09:37→21:38)
[2021-03-15] MEDS: Nicotine 21 MG PATCH.TD24 TD SCH (09:39)
[2021-03-15] MEDS: ARIPiprazole 5 MG TABLET PO SCH (09:39)
[2021-03-15] MEDS: *HR* LORazepam 0.5 MG TABLET PO PRN (12:29)
[2021-03-15] MEDS: *HR* HYDROcodone/Acet 10/325 mg TABLET PO PRN ×2 (12:29→18:33)
[2021-03-15] MEDS: levoFLOXacin 750 MG/150 ML 750 MG/150 ML BAG IVPB SCH (15:28)
[2021-03-15] MEDS: traZODone 50 MG TABLET PO SCH (20:10)
[2021-03-16] MEDS: *HR* HYDROcodone/Acet 10/325 mg TABLET PO PRN (06:23)
[2021-03-16] MEDS: Tiotropium 10 INH DOSE IH SCH (07:34)
[2021-03-16] MEDS: Budesonide/Formoterol 160/4.5 1 PUFF INH IH SCH ×2 (07:34→20:39)
[2021-03-16] MEDS: Nicotine 21 MG PATCH.TD24 TD SCH (09:58)
[2021-03-16] MEDS: Gabapentin 400 MG CAPSULE PO SCH ×3 (09:59→22:05)
[2021-03-16] MEDS: carvediloL 6.25 MG TABLET PO SCH ×2 (09:59→16:57)
[2021-03-16] MEDS: ARIPiprazole 5 MG TABLET PO SCH (09:59)
[2021-03-16] MEDS: metroNIDAZOLE 500 MG TABLET PO SCH ×2 (09:59→15:34)
[2021-03-16] MEDS: BuPROPion SR (12 HR) 150 MG TABLET PO SCH ×2 (09:59→22:05)
[2021-03-16] MEDS: lisinopriL 20 MG TABLET PO SCH (09:59)
[2021-03-16] MEDS: *HR* LORazepam 0.5 MG TABLET PO PRN (11:48)
[2021-03-16] MEDS: *HR* OxyCODONE/APAP 10/325 TABLET PO PRN ×3 (11:48→22:13)
[2021-03-16] MEDS: levoFLOXacin 750 MG/150 ML 750 MG/150 ML BAG IVPB SCH (15:52)
[2021-03-16] MEDS: traZODone 50 MG TABLET PO SCH (22:05)
[2021-03-17] MEDS: metroNIDAZOLE 500 MG TABLET PO SCH ×3 (00:31→16:32)
[2021-03-17] MEDS: *HR* OxyCODONE/APAP 10/325 TABLET PO PRN ×4 (05:32→20:34)
[2021-03-17 05:49] LABS: Hematocrit 32.4 % (35.3-44.9); Hemoglobin 10.5 g/dL (11.5-15.4); Mean Corpuscular HGB Conc 32.4 g/dL (31.6-35.5); Mean Corpuscular Hemoglobin 32.8 pg (28.0-33.3); Mean Corpuscular Volume 101.3 fL (83.0-100.0); Mean Platelet Volume 9.8 fL (9.4-12.4); Platelet Count 271 K/mcL (140-400); Red Cell Distribution Width 13.4 % (11.5-14.5); White Blood Count 6.1 K/mcL (4.3-11.1)
[2021-03-17 06:29] LABS: BUN/Creatinine Ratio 22 (6-26); Blood Urea Nitrogen 17 mg/dL (8-23); Carbon Dioxide 30 mEq/L (23-29); Chloride 99 mEq/L (98-107); Glucose 83 mg/dL (70-105); Osmolality,Calculated 279 (280-300); Potassium 5.2 mEq/L (3.5-5.1); Sodium 134 mEq/L (136-145); eGFR For African Americans > 60 (> 60); eGFR For Non-African Americans > 60 (> 60)
[2021-03-17] MEDS: Tiotropium 10 INH DOSE IH SCH (08:35)
[2021-03-17] MEDS: Budesonide/Formoterol 160/4.5 1 PUFF INH IH SCH ×2 (08:36→20:43)
[2021-03-17] MEDS: lisinopriL 20 MG TABLET PO SCH (08:53)
[2021-03-17] MEDS: BuPROPion SR (12 HR) 150 MG TABLET PO SCH ×2 (08:53→20:34)
[2021-03-17] MEDS: carvediloL 6.25 MG TABLET PO SCH ×2 (08:53→16:31)
[2021-03-17] MEDS: Nicotine 21 MG PATCH.TD24 TD SCH (08:54)
[2021-03-17] MEDS: Gabapentin 400 MG CAPSULE PO SCH ×3 (08:54→20:34)
[2021-03-17] MEDS: ARIPiprazole 5 MG TABLET PO SCH (08:54)
[2021-03-17] MEDS: traZODone 50 MG TABLET PO SCH (22:08)
[2021-03-18] MEDS: metroNIDAZOLE 500 MG TABLET PO SCH ×3 (00:58→15:49)
[2021-03-18] MEDS: *HR* OxyCODONE/APAP 10/325 TABLET PO PRN ×3 (01:10→15:50)
[2021-03-18 07:27] LABS: BUN/Creatinine Ratio 31 (6-26); Blood Urea Nitrogen 14 mg/dL (8-23); Calcium 6.7 mg/dL (8.6-10.3); Carbon Dioxide 24 mEq/L (23-29); Chloride 109 mEq/L (98-107); Glucose 70 mg/dL (70-105); Osmolality,Calculated 285 (280-300); Potassium 3.3 mEq/L (3.5-5.1); Sodium 138 mEq/L (136-145); eGFR For African Americans > 60 (> 60); eGFR For Non-African Americans > 60 (> 60)
[2021-03-18] MEDS: Tiotropium 10 INH DOSE IH SCH (08:26)
[2021-03-18] MEDS: Budesonide/Formoterol 160/4.5 1 PUFF INH IH SCH (08:26)
[2021-03-18] MEDS: Gabapentin 400 MG CAPSULE PO SCH ×2 (09:38→15:49)
[2021-03-18] MEDS: lisinopriL 20 MG TABLET PO SCH (09:38)
[2021-03-18] MEDS: BuPROPion SR (12 HR) 150 MG TABLET PO SCH (09:38)
[2021-03-18] MEDS: ARIPiprazole 5 MG TABLET PO SCH (09:38)
[2021-03-18] MEDS: Nicotine 21 MG PATCH.TD24 TD SCH (09:39)
[2021-03-18] MEDS: carvediloL 6.25 MG TABLET PO SCH ×2 (09:46→15:50)
[2021-03-18 17:15] VITALS: PULSE 70; TEMP 98; O2SAT 100
[2021-03-18] MEDS ORDERED: *HR* Labetalol 20 MG/4 ML SYRINGE IVP STA (17:28)
[2021-03-18] MEDS: *HR* LORazepam 0.5 MG TABLET PO PRN (17:38)
[2021-03-18 18:07] VITALS: BP 176/70
[2021-03-19 03:50] LABS: A.galactomannan Ag Index 0.03
== END 2021-03-18 18:16 | DRG 177 ==
LOC: 2ANU → SUATTDRO 17:10
PROVIDERS: ADMIT Pharmacist; ATTEND Internal Medicine
PROC: ENDOBBX (2021-03-14 08:30)